=== PATIENT | male | born 1960 | race Native Hawaiian/Other Pacific Islander ===

== ENCOUNTER 2018-07-16 09:23 | Outpatient (CLI) | payer BC ==
[2018-07-16 10:17] LABS: PLATELET COUNT 270 K/uL (142-355)
[2018-07-16 10:29] LABS: PARTIAL THROMBOPLASTIN TIME 24.7 SECONDS (24.5-33.6)
[2018-07-16 10:37] LABS: POTASSIUM 3.8 mmol/L (3.6-5.2)
[2018-07-16 10:50] LABS: POTASSIUM 3.7 mmol/L (3.6-5.2)
== END 2018-07-16 19:55 | disposition home or self-care (01) ==
LOC: LABW 09:23
PROVIDERS: Nurse Practitioner Family
DX: R31.0 Gross hematuria (principal); I10 Essential (primary) hypertension; Z79.899 Other long term (current) drug therapy; Z79.01 Long term (current) use of anticoagulants
CPT/HCPCS: 36415; 80053; 80061; 80069; 81000; 82570; 82607; 82746; 83516; 84155; 84436; 84443; 85027; 85610; 85651; 85730; 86039; 86160; 86255; 89050

== ENCOUNTER 2022-02-07 08:07 | Outpatient (CLI) | payer BC | END 2022-02-07 18:48 | disposition home or self-care (01) | LOC: CT 08:07 | PROVIDERS: ATTEND Nurse Practitioner Family | DX: R10.9 Unspecified abdominal pain (principal); R50.9 Fever, unspecified; R22.9 Localized swelling, mass and lump, unspecified | CPT/HCPCS: 36415; 82565; 84520; Q9963 ==